=== PATIENT | male | born 1950 | race Caucasian/White ===

== ENCOUNTER 2024-12-09 20:13 | Inpatient (IN) | payer MEDICARE, MEDICAID ==
[~2024-12-09] VITALS: Ht 182.9 cm; Wt 60.3 kg
[2024-12-09 23:15] VITALS: BP 154/67; TEMP 98.1; O2SAT 98
[2024-12-09] MEDS ORDERED: ONDANSETRON HCL/PF 4 MG/2 ML VIAL IVP PRN (23:30)
[2024-12-10 00:56] VITALS: BP 154/67; TEMP 98.1; O2SAT 98
[2024-12-10] MEDS ORDERED: SODIUM BICARBONATE SYR 50 MEQ/50 ML DISP.SYRIN ONE (00:58)
[2024-12-10 01:08] LABS: CALCIUM, SERUM 8.9 mg/dL (8.5-10.1); CHLORIDE 105 mmol/L (98-107); GLUCOSE 143 mg/dL (74-106); POTASSIUM 5.6 mmol/L (3.5-5.1); SODIUM SERUM 139 mmol/L (136-145)
[2024-12-10 01:12] LABS: CARBON DIOXIDE 10 mmol/L (21-32); LIPASE > 375 U/L (16-77)
[2024-12-10 01:16] LABS: CREATININE 11.8 mg/dL (0.6-1.3); UREA NITROGEN, BLOOD 143 mg/dL (7-18)
[2024-12-10] MEDS ORDERED: ASPI-1169 PO (01:22)
[2024-12-10] MEDS ORDERED: EZET10TA16 PO (01:22)
[2024-12-10] MEDS ORDERED: MONT10TA22 PO (01:22)
[2024-12-10] MEDS ORDERED: FLUT16SP NS (01:22)
[2024-12-10] MEDS ORDERED: ROSU40TA PO (01:22)
[2024-12-10] MEDS ORDERED: CLON0.1T PO (01:22)
[2024-12-10] MEDS ORDERED: METF-442 PO (01:22)
[2024-12-10] MEDS ORDERED: OLME5TAB3 PO (01:22)
[2024-12-10] MEDS: Sodium Bicarbonate 100 MEQ in IV NS 0.9% 1,000 ML IV SCH (01:33)
[2024-12-10 04:00] VITALS: BP 150/69; TEMP 97.5; O2SAT 98
[2024-12-10] MEDS: DEXTROSE 50%-WATER 50 ML DISP.SYRIN IVP ONE (05:40)
[2024-12-10] MEDS: INSULIN REGULAR, HUMAN 100 UNIT/ML 10 ML VIAL IV ONE (05:43)
[2024-12-10] MEDS ORDERED: Calcium Gluconate 0.465 MEQ/ML VIAL IV ONE (05:54)
[2024-12-10] MEDS: Calcium Gluconate 0.465 MEQ/ML VIAL IV ONE (06:02)
[2024-12-10] MEDS: PANTOPRAZOLE 40 MG TABLET.DR PO SCH (06:44)
[2024-12-10 07:30] VITALS: BP 126/75; TEMP 98.1; O2SAT 98
[2024-12-10 07:40] LABS: BASOPHILS % (AUTO) 0.1 % (0.0-2.0); EOSINOPHILS % (AUTO) 0.2 % (0.0-6.0); HEMATOCRIT 33 % (39-51); HEMOGLOBIN 10.8 g/dL (13.5-17.5); LYMPHOCYTES % (AUTO) 6.9 % (20.0-44.0); MEAN CORPUSCULAR HEMOGLOBIN 28 PG (26.0-33.0); MEAN CORPUSCULAR HGB CONC 33 g/dl (31.0-36.0); MEAN CORPUSCULAR VOLUME 87 fL (80-96); MONOCYTES % (AUTO) 7.1 % (2.0-12.0); NEUTROPHILS # (AUTO) 12.2 K/uL (1.8-8.9); NEUTROPHILS % (AUTO) 85.7 % (43.0-81.0); PLATELET COUNT (AUTO) 303 K/uL (150-450); RED BLOOD CELL COUNT(AUTO) 3.81 MIL/uL (4.5-6.0); RED CELL DISTRIBUTION WIDTH 15.4 % (11.5-15.0); WHITE BLOOD COUNT (AUTO) 14.2 K/uL (4.3-11.0)
[2024-12-10 07:51] LABS: CHOLESTEROL 84 mg/dL (<200); HDL CHOLESTEROL 26 mg/dL (40-60); LDL 26 mg/dL (0-99); TRIGLYCERIDES 297 mg/dL (30-150)
[2024-12-10 07:58] LABS: CALCIUM, SERUM 8.8 mg/dL (8.5-10.1); CHLORIDE 106 mmol/L (98-107); GLUCOSE 128 mg/dL (74-106); MAGNESIUM 2.3 mg/dL (1.8-2.4); POTASSIUM 5.6 mmol/L (3.5-5.1); SODIUM SERUM 139 mmol/L (136-145)
[2024-12-10 08:44] LABS: CARBON DIOXIDE 9 mmol/L (21-32); CREATININE 11.8 mg/dL (0.6-1.3); LIPASE > 375 U/L (16-77); PHOSPHORUS 9.1 mg/dL (2.5-4.9); UREA NITROGEN, BLOOD 144 mg/dL (7-18)
[2024-12-10 09:30] LABS: SITE, VBG RIGHT RADIAL; VBG COHb 0.3 % (0.5-1.5); VBG HCO3 11.6 mmol/L (22.0-29.0); VBG MetHb 0.2 % (0.5-1.5); VBG O2Hb 96.2 % (0-79); VBG OXYGEN SATURATION 96.7 % (60.0-85.0); VBG PCO2 26.5 mmHg (38.0-54.0); VBG PH 7.258 (7.320-7.430); VBG PO2 101.4 mmHg (23.0-48.0); VBG TOTAL HEMOGLOBIN 10.9 G/dL (13.5-17.5)
[2024-12-10] MEDS: SODIUM ZIRCONIUM CYCLOSILICATE 10 GM POWD.PACK PO ONE (10:41)
[2024-12-10] MEDS: Sodium Bicarbonate 100 MEQ in IV 1/2NS 1000 ML 1,000 ML IV SCH (11:39)
[2024-12-10 16:10] VITALS: BP 157/81; TEMP 98.1; O2SAT 97
[2024-12-10 16:33] LABS: CREATININE, URINE 89.5 MG/DL (30.0-125.0); URINE TOTAL PROTEIN 165.9 mg/dL (0-11.9)
[2024-12-10 17:11] LABS: APPEARANCE,URINE CLEAR (CLEAR); BILIRUBIN,URINE NEGATIVE (NEGATIVE); BLOOD, URINE 3+ Ery/uL (NEGATIVE); COLOR,URINE YELLOW (YELLOW); KETONES,URINE NEGATIVE (NEGATIVE); LEUKOCYTE ESTERASE ,URINE NEGATIVE (NEGATIVE); NITRITE, URINE NEGATIVE (NEGATIVE); PH,URINE 5.5 (5.0-8.0); PROTEIN,URINE 2+ mg/dl (NEGATIVE); UGLUCOSE NEGATIVE (NEGATIVE); UROBILINOGEN,URINE 0.2 EU/dL (0.2)
[2024-12-10 17:21] LABS: ADD URINE CULTURE NO; BACTERIA,URINE Rare /HPF (None Seen); RBC,URINE 21-50 /HPF (0-2)
[2024-12-10 17:22] LABS: MUCUS,URINE Rare /LPF (None Seen)
[2024-12-10 20:00] VITALS: BP 148/67; TEMP 97.8; O2SAT 98
[2024-12-10 21:02] VITALS: BP 148/67; TEMP 97.8; O2SAT 98
[2024-12-10] MEDS: ACETAMINOPHEN 325 MG TABLET PO PRN (23:12)
[2024-12-11] VITALS: BP 126/70; TEMP 97.9; O2SAT 99
[2024-12-11 04:00] VITALS: BP 155/76; TEMP 98.2; O2SAT 98
[2024-12-11 07:06] LABS: BASOPHILS % (AUTO) 0.2 % (0.0-2.0); EOSINOPHILS # (AUTO) 0.2 K/uL (0.0-0.7); EOSINOPHILS % (AUTO) 1.9 % (0.0-6.0); HEMATOCRIT 27 % (39-51); HEMOGLOBIN 9.6 g/dL (13.5-17.5); LYMPHOCYTES # (AUTO) 0.8 K/uL (0.8-4.8); LYMPHOCYTES % (AUTO) 8.4 % (20.0-44.0); MEAN CORPUSCULAR HEMOGLOBIN 29 PG (26.0-33.0); MEAN CORPUSCULAR HGB CONC 35 g/dl (31.0-36.0); MEAN CORPUSCULAR VOLUME 83 fL (80-96); MONOCYTES # (AUTO) 0.8 K/uL (0.1-1.30); NEUTROPHILS # (AUTO) 7.7 K/uL (1.8-8.9); NEUTROPHILS % (AUTO) 81.5 % (43.0-81.0); PLATELET COUNT (AUTO) 234 K/uL (150-450); RED CELL DISTRIBUTION WIDTH 14.8 % (11.5-15.0); WHITE BLOOD COUNT (AUTO) 9.4 K/uL (4.3-11.0)
[2024-12-11 08:00] VITALS: BP 156/79; TEMP 97.7; O2SAT 98
[2024-12-11 10:33] LABS: ALANINE AMINOTRANSFERASE 191 U/L (12-78); ALBUMIN 2.7 g/dL (3.4-5.0); ALKALINE PHOSPHATASE 95 U/L (46-116); ASPARTATE AMINOTRANSFERASE 157 U/L (15-37); BILIRUBIN,TOTAL 0.3 mg/dL (0.2-1.0); CALCIUM, SERUM 8.4 mg/dL (8.5-10.1); CARBON DIOXIDE 27 mmol/L (21-32); CHLORIDE 103 mmol/L (98-107); GLUCOSE 155 mg/dL (74-106); MAGNESIUM 1.9 mg/dL (1.8-2.4); PHOSPHORUS 5.5 mg/dL (2.5-4.9); POTASSIUM 3.6 mmol/L (3.5-5.1); SODIUM SERUM 139 mmol/L (136-145); TOTAL PROTEIN, SERUM 6.4 g/dL (6.4-8.2)
[2024-12-11 10:48] LABS: CREATININE 8.2 mg/dL (0.6-1.3); UREA NITROGEN, BLOOD 84 mg/dL (7-18)
[2024-12-11 11:54] LABS: CREATINE KINASE, TOTAL 2509 U/L (39-308)
[2024-12-11 12:00] VITALS: BP 157/72; TEMP 98.1; O2SAT 98
[2024-12-11] MEDS ORDERED: DEXTROSE 50%-WATER 50 ML DISP.SYRIN IV PRN (13:30)
[2024-12-11 16:00] VITALS: BP 155/79; TEMP 98.1; O2SAT 98
[2024-12-11] MEDS: BLOOD SUGAR DIAGNOSTIC 1 EACH STRIP IN SCH (16:46)
[2024-12-11] MEDS: INSULIN REGULAR, HUMAN 100 UNIT/ML 3 ML VIAL SQ PRN (16:48)
[2024-12-11 20:00] VITALS: BP 138/63; TEMP 97.3; O2SAT 98
[2024-12-11] MEDS: MONTELUKAST SODIUM (10MG) 10 MG TABLET PO SCH (22:26)
[2024-12-12 01:07] LABS: HEPATITIS B SURFACE AB (QUAL) Non Reactive (.)
[2024-12-12 06:11] LABS: PTH, INTACT 149 pg/mL (15-65)
[2024-12-12 06:11] LABS: COMPLEMENT C3, SERUM 126 mg/dL (82-167); COMPLEMENT C4, SERUM 31 mg/dL (12-38)
[2024-12-12 07:00] VITALS: BP 145/78; TEMP 97.3; O2SAT 96
[2024-12-12 07:07] LABS: *ANA ANTI-CENTROMERE B AB <0.2 AI (0.0-0.9); *ANA ANTI-DNA(DS) AB, QN <1 IU/mL (0-9); *ANA ANTI-JO-1 <0.2 AI (0.0-0.9); *ANA ANTICHROMATIN ANTIBODY <0.2 AI (0.0-0.9); *ANA RNP ANTIBODIES <0.2 AI (0.0-0.9); *ANA SJOGREN'S ANTI-SS-A <0.2 AI (0.0-0.9); *ANA SJOGREN'S ANTI-SS-B <0.2 AI (0.0-0.9); *ANAANTI-SCLERODERMA-70 AB <0.2 AI (0.0-0.9); *ANASMITH AB <0.2 AI (0.0-0.9)
[2024-12-12] MEDS: ASPIRIN 81 MG TAB.CHEW PO SCH (08:24)
[2024-12-12] MEDS: ATORVASTATIN 40 MG TABLET PO SCH (08:24)
[2024-12-12] MEDS: EZETIMIBE 10 MG TABLET PO SCH (08:24)
[2024-12-12] MEDS: LOSARTAN POTASSIUM 25 MG TABLET PO SCH (08:24)
[2024-12-12] MEDS: FLUTICASONE PROPIONATE 16 GM BOTTLE NS SCH (09:18)
[2024-12-12 09:59] LABS: BASOPHILS % (AUTO) 0.2 % (0.0-2.0); EOSINOPHILS # (AUTO) 0.2 K/uL (0.0-0.7); EOSINOPHILS % (AUTO) 2.1 % (0.0-6.0); HEMATOCRIT 29 % (39-51); HEMOGLOBIN 9.9 g/dL (13.5-17.5); LYMPHOCYTES # (AUTO) 0.8 K/uL (0.8-4.8); LYMPHOCYTES % (AUTO) 8.7 % (20.0-44.0); MEAN CORPUSCULAR HEMOGLOBIN 29 PG (26.0-33.0); MEAN CORPUSCULAR HGB CONC 35 g/dl (31.0-36.0); MEAN CORPUSCULAR VOLUME 84 fL (80-96); MONOCYTES # (AUTO) 0.7 K/uL (0.1-1.30); MONOCYTES % (AUTO) 7.1 % (2.0-12.0); NEUTROPHILS # (AUTO) 7.8 K/uL (1.8-8.9); NEUTROPHILS % (AUTO) 81.9 % (43.0-81.0); PLATELET COUNT (AUTO) 187 K/uL (150-450); RED BLOOD CELL COUNT(AUTO) 3.39 MIL/uL (4.5-6.0); RED CELL DISTRIBUTION WIDTH 14.9 % (11.5-15.0); WHITE BLOOD COUNT (AUTO) 9.6 K/uL (4.3-11.0)
[2024-12-12 10:11] LABS: CALCIUM, SERUM 7.9 mg/dL (8.5-10.1); CARBON DIOXIDE 26 mmol/L (21-32); CHLORIDE 103 mmol/L (98-107); GLUCOSE 168 mg/dL (74-106); MAGNESIUM 1.6 mg/dL (1.8-2.4); PHOSPHORUS 5.1 mg/dL (2.5-4.9); POTASSIUM 3.6 mmol/L (3.5-5.1); SODIUM SERUM 144 mmol/L (136-145)
[2024-12-12 10:12] LABS: UREA NITROGEN, BLOOD 89 mg/dL (7-18)
[2024-12-12 10:13] LABS: CREATININE 7.8 mg/dL (0.6-1.3)
[2024-12-12] MEDS: MAGNESIUM OXIDE 400 MG TABLET PO ONE (12:35)
[2024-12-12 16:00] VITALS: BP 133/87; TEMP 97.7; O2SAT 97
[2024-12-12 20:00] VITALS: BP 139/63; TEMP 98.1; O2SAT 98
[2024-12-13] MEDS: MORPHINE SULFATE INJ 2 MG/ML DISP.SYRIN IV PRN (02:08)
[2024-12-13 07:00] VITALS: BP 167/81; TEMP 97.5; O2SAT 100
[2024-12-13 07:22] LABS: BASOPHILS # (AUTO) 0.1 K/uL (0.0-0.2); BASOPHILS % (AUTO) 0.5 % (0.0-2.0); EOSINOPHILS # (AUTO) 0.2 K/uL (0.0-0.7); HEMATOCRIT 30 % (39-51); HEMOGLOBIN 9.9 g/dL (13.5-17.5); LYMPHOCYTES # (AUTO) 1.1 K/uL (0.8-4.8); LYMPHOCYTES % (AUTO) 10.6 % (20.0-44.0); MEAN CORPUSCULAR HEMOGLOBIN 29 PG (26.0-33.0); MEAN CORPUSCULAR HGB CONC 34 g/dl (31.0-36.0); MEAN CORPUSCULAR VOLUME 86 fL (80-96); MONOCYTES # (AUTO) 0.8 K/uL (0.1-1.30); MONOCYTES % (AUTO) 7.4 % (2.0-12.0); NEUTROPHILS # (AUTO) 8.3 K/uL (1.8-8.9); NEUTROPHILS % (AUTO) 79.5 % (43.0-81.0); PLATELET COUNT (AUTO) 186 K/uL (150-450); RED BLOOD CELL COUNT(AUTO) 3.45 MIL/uL (4.5-6.0); RED CELL DISTRIBUTION WIDTH 14.7 % (11.5-15.0); WHITE BLOOD COUNT (AUTO) 10.4 K/uL (4.3-11.0)
[2024-12-13 08:17] LABS: ALBUMIN 2.7 g/dL (3.4-5.0); BILIRUBIN,TOTAL 0.5 mg/dL (0.2-1.0); CALCIUM, SERUM 8.2 mg/dL (8.5-10.1); CREATININE 4.7 mg/dL (0.6-1.3); PHOSPHORUS 3.4 mg/dL (2.5-4.9); POTASSIUM 3.7 mmol/L (3.5-5.1); TOTAL PROTEIN, SERUM 6.5 g/dL (6.4-8.2)
[2024-12-13 11:09] LABS: ANTI-MPO ANTIBODIES <0.2 units (0.0-0.9); ANTI-PR3 ANTIBODIES <0.2 units (0.0-0.9)
[2024-12-13 12:07] LABS: *SPE A/G RATIO 1.1 (0.7-1.7); *SPE ALBUMIN 2.9 g/dL (2.9-4.4); *SPE ALPHA-1-GLOBULIN 0.2 g/dL (0.0-0.4); *SPE ALPHA-2-GLOBULIN 1.1 g/dL (0.4-1.0); *SPE BETA GLOBULIN 0.8 g/dL (0.7-1.3); *SPE GLOBULIN, TOTAL 2.7 g/dL (2.2-3.9); *SPE M-SPIKE Not Observed g/dL (Not Observed); *SPE PROTEIN TOTAL 5.6 g/dL (6.0-8.5); *SPEGAMMA GLOBULIN 0.7 g/dL (0.4-1.8)
[2024-12-13 14:12] LABS: *ANCA ATYPICAL p-ANCA <1:20 titer (Neg:<1:20); *ANCA CYTOPLASMIC (C-ANCA) <1:20 titer (Neg:<1:20); *ANCA PERINUCLEAR (P-ANCA) <1:20 titer (Neg:<1:20)
[2024-12-13 16:00] VITALS: BP 158/79; TEMP 98.1; O2SAT 97
[2024-12-13 20:00] VITALS: BP 155/76; TEMP 98.2; O2SAT 97
[2024-12-14 07:00] VITALS: BP 179/85; TEMP 98.8; O2SAT 94
[2024-12-14 07:57] LABS: BASOPHILS % (AUTO) 0.2 % (0.0-2.0); EOSINOPHILS # (AUTO) 0.2 K/uL (0.0-0.7); EOSINOPHILS % (AUTO) 1.8 % (0.0-6.0); HEMATOCRIT 25 % (39-51); HEMOGLOBIN 8.6 g/dL (13.5-17.5); LYMPHOCYTES # (AUTO) 0.6 K/uL (0.8-4.8); LYMPHOCYTES % (AUTO) 6.1 % (20.0-44.0); MEAN CORPUSCULAR HEMOGLOBIN 29 PG (26.0-33.0); MEAN CORPUSCULAR HGB CONC 34 g/dl (31.0-36.0); MEAN CORPUSCULAR VOLUME 85 fL (80-96); MONOCYTES # (AUTO) 0.7 K/uL (0.1-1.30); MONOCYTES % (AUTO) 6.8 % (2.0-12.0); NEUTROPHILS # (AUTO) 8.7 K/uL (1.8-8.9); NEUTROPHILS % (AUTO) 85.1 % (43.0-81.0); PLATELET COUNT (AUTO) 158 K/uL (150-450); RED BLOOD CELL COUNT(AUTO) 2.94 MIL/uL (4.5-6.0); RED CELL DISTRIBUTION WIDTH 14.2 % (11.5-15.0); WHITE BLOOD COUNT (AUTO) 10.2 K/uL (4.3-11.0)
[2024-12-14 08:14] LABS: ALBUMIN 2.4 g/dL (3.4-5.0); BILIRUBIN,TOTAL 0.4 mg/dL (0.2-1.0); CREATININE 3.2 mg/dL (0.6-1.3); MAGNESIUM 1.7 mg/dL (1.8-2.4); PHOSPHORUS 2.6 mg/dL (2.5-4.9); POTASSIUM 3.5 mmol/L (3.5-5.1); TOTAL PROTEIN, SERUM 5.7 g/dL (6.4-8.2)
[2024-12-14] MEDS: NIFEdipine XL (30MG) 30 MG TAB PO SCH (09:07)
[2024-12-14 16:00] VITALS: BP 143/66; TEMP 98.6; O2SAT 95
[2024-12-14 20:00] VITALS: BP 149/72; TEMP 100; O2SAT 93
[2024-12-15 06:53] LABS: BASOPHILS % (AUTO) 0.2 % (0.0-2.0); EOSINOPHILS # (AUTO) 0.1 K/uL (0.0-0.7); EOSINOPHILS % (AUTO) 0.8 % (0.0-6.0); HEMATOCRIT 26 % (39-51); HEMOGLOBIN 8.6 g/dL (13.5-17.5); LYMPHOCYTES # (AUTO) 0.6 K/uL (0.8-4.8); LYMPHOCYTES % (AUTO) 5.4 % (20.0-44.0); MEAN CORPUSCULAR HEMOGLOBIN 29 PG (26.0-33.0); MEAN CORPUSCULAR HGB CONC 34 g/dl (31.0-36.0); MEAN CORPUSCULAR VOLUME 85 fL (80-96); MONOCYTES % (AUTO) 8.3 % (2.0-12.0); NEUTROPHILS % (AUTO) 85.3 % (43.0-81.0); PLATELET COUNT (AUTO) 165 K/uL (150-450); RED BLOOD CELL COUNT(AUTO) 2.99 MIL/uL (4.5-6.0); RED CELL DISTRIBUTION WIDTH 14.2 % (11.5-15.0); WHITE BLOOD COUNT (AUTO) 11.7 K/uL (4.3-11.0)
[2024-12-15 07:27] LABS: ALBUMIN 2.5 g/dL (3.4-5.0); BILIRUBIN,TOTAL 0.5 mg/dL (0.2-1.0); CREATININE 3.8 mg/dL (0.6-1.3); MAGNESIUM 1.5 mg/dL (1.8-2.4); PHOSPHORUS 2.8 mg/dL (2.5-4.9); POTASSIUM 3.5 mmol/L (3.5-5.1); TOTAL PROTEIN, SERUM 5.9 g/dL (6.4-8.2)
[2024-12-15 07:30] VITALS: BP 157/73; TEMP 98.6; O2SAT 96
[2024-12-15 16:00] VITALS: BP 140/61; TEMP 98.4; O2SAT 96
[2024-12-15 20:00] VITALS: BP 126/65; TEMP 98.2; O2SAT 97
[2024-12-16 07:18] LABS: BASOPHILS % (AUTO) 0.2 % (0.0-2.0); EOSINOPHILS # (AUTO) 0.1 K/uL (0.0-0.7); HEMATOCRIT 25 % (39-51); HEMOGLOBIN 8.2 g/dL (13.5-17.5); LYMPHOCYTES # (AUTO) 0.5 K/uL (0.8-4.8); LYMPHOCYTES % (AUTO) 6.3 % (20.0-44.0); MEAN CORPUSCULAR HEMOGLOBIN 29 PG (26.0-33.0); MEAN CORPUSCULAR HGB CONC 34 g/dl (31.0-36.0); MEAN CORPUSCULAR VOLUME 86 fL (80-96); MONOCYTES # (AUTO) 0.9 K/uL (0.1-1.30); MONOCYTES % (AUTO) 11.2 % (2.0-12.0); NEUTROPHILS # (AUTO) 6.2 K/uL (1.8-8.9); NEUTROPHILS % (AUTO) 81.3 % (43.0-81.0); PLATELET COUNT (AUTO) 157 K/uL (150-450); RED BLOOD CELL COUNT(AUTO) 2.86 MIL/uL (4.5-6.0); RED CELL DISTRIBUTION WIDTH 14.2 % (11.5-15.0); WHITE BLOOD COUNT (AUTO) 7.6 K/uL (4.3-11.0)
[2024-12-16 07:59] LABS: ALBUMIN 2.5 g/dL (3.4-5.0); BILIRUBIN,TOTAL 0.5 mg/dL (0.2-1.0); CALCIUM, SERUM 8.1 mg/dL (8.5-10.1); CREATININE 2.9 mg/dL (0.6-1.3); MAGNESIUM 1.5 mg/dL (1.8-2.4); PHOSPHORUS 2.5 mg/dL (2.5-4.9); POTASSIUM 3.4 mmol/L (3.5-5.1); TOTAL PROTEIN, SERUM 6.1 g/dL (6.4-8.2)
[2024-12-16 08:00] VITALS: BP 110/53; TEMP 97.7; O2SAT 96
[2024-12-16 16:00] VITALS: BP 149/77; TEMP 98.4; O2SAT 95
[2024-12-16 20:00] VITALS: BP_SYST 152; BP_SYST 163; BP_DIAS 70; BP_DIAS 75; TEMP 100.9; TEMP 99; O2SAT 96
[2024-12-17 06:34] LABS: BASOPHILS % (AUTO) 0.3 % (0.0-2.0); EOSINOPHILS % (AUTO) 0.6 % (0.0-6.0); HEMATOCRIT 27 % (39-51); LYMPHOCYTES # (AUTO) 0.5 K/uL (0.8-4.8); LYMPHOCYTES % (AUTO) 8.4 % (20.0-44.0); MEAN CORPUSCULAR HEMOGLOBIN 29 PG (26.0-33.0); MEAN CORPUSCULAR HGB CONC 33 g/dl (31.0-36.0); MEAN CORPUSCULAR VOLUME 88 fL (80-96); MONOCYTES % (AUTO) 16.2 % (2.0-12.0); NEUTROPHILS # (AUTO) 4.6 K/uL (1.8-8.9); NEUTROPHILS % (AUTO) 74.5 % (43.0-81.0); PLATELET COUNT (AUTO) 186 K/uL (150-450); RED BLOOD CELL COUNT(AUTO) 3.09 MIL/uL (4.5-6.0); RED CELL DISTRIBUTION WIDTH 14.5 % (11.5-15.0); WHITE BLOOD COUNT (AUTO) 6.1 K/uL (4.3-11.0)
[2024-12-17 07:24] LABS: CALCIUM, SERUM 8.5 mg/dL (8.5-10.1); CREATININE 3.5 mg/dL (0.6-1.3); POTASSIUM 3.5 mmol/L (3.5-5.1)
[2024-12-17 08:00] VITALS: BP 171/89; TEMP 98.4; O2SAT 98
[2024-12-17 10:00] VITALS: BP 145/74
[2024-12-17 12:38] LABS: BAND % (MANUAL) 10 % (0.0-5.0); LYMPHOCYTES % (MANUAL) 14 % (16-48); NEUTROPHILS % (MANUAL) 76 (42-76); PLATELET ESTIMATE ADEQUATE
[2024-12-17 20:00] VITALS: BP 120/56; TEMP 98.4; O2SAT 96
[2024-12-18 07:17] LABS: BASOPHILS % (AUTO) 0.4 % (0.0-2.0); EOSINOPHILS % (AUTO) 0.3 % (0.0-6.0); HEMATOCRIT 24 % (39-51); LYMPHOCYTES # (AUTO) 0.5 K/uL (0.8-4.8); LYMPHOCYTES % (AUTO) 11.4 % (20.0-44.0); MEAN CORPUSCULAR HEMOGLOBIN 28 PG (26.0-33.0); MEAN CORPUSCULAR HGB CONC 33 g/dl (31.0-36.0); MEAN CORPUSCULAR VOLUME 86 fL (80-96); MONOCYTES # (AUTO) 0.8 K/uL (0.1-1.30); MONOCYTES % (AUTO) 17.9 % (2.0-12.0); NEUTROPHILS # (AUTO) 2.9 K/uL (1.8-8.9); PLATELET COUNT (AUTO) 170 K/uL (150-450); RED BLOOD CELL COUNT(AUTO) 2.82 MIL/uL (4.5-6.0); RED CELL DISTRIBUTION WIDTH 14.3 % (11.5-15.0); WHITE BLOOD COUNT (AUTO) 4.2 K/uL (4.3-11.0)
[2024-12-18 07:27] LABS: CREATININE 2.4 mg/dL (0.6-1.3)
[2024-12-18 07:50] LABS: POTASSIUM 2.9 mmol/L (3.5-5.1)
[2024-12-18 08:00] VITALS: BP 137/66; TEMP 99; O2SAT 96
[2024-12-18] MEDS ORDERED: LIDOCAINE HCL/MPF 1% 30 ML VIAL IJ ONE (10:06)
[2024-12-18] MEDS ORDERED: HEPARIN SODIUM, PORCINE 1,000 UNIT/ML VIAL ONE (10:06)
[2024-12-18] MEDS ORDERED: ANESTHESIA TRAY IN PYXIS 1 EA TRAY MC ONE (10:06)
[2024-12-18] MEDS: POTASSIUM CL. PREMIX PERIPHER. 50 ML IV SCH (10:51)
[2024-12-18 11:15] VITALS: BP 152/61; TEMP 100.6; O2SAT 96
[2024-12-18 11:16] VITALS: TEMP 99.5
[2024-12-18] MEDS ORDERED: ACETAMINOPHEN 650 MG/SUPP.RECT RC PRN (11:30)
[2024-12-18] MEDS ORDERED: MIDAZOLAM HCL 2 MG/2ML VIAL ONE (12:08)
[2024-12-18 15:19] LABS: LYMPHOCYTES % (MANUAL) 15 % (16-48); MONOCYTES % (MANUAL) 10 % (0-11.0); NEUTROPHILS % (MANUAL) 75 (42-76)
[2024-12-18 15:20] LABS: ANISOCYTOSIS 1+; PLATELET ESTIMATE ADEQUATE
[2024-12-18 16:00] VITALS: BP 159/74; TEMP 99.5; O2SAT 97
[2024-12-18] MEDS: ANCEF 1 GM/50 ML D5W IV SCH (19:35)
[2024-12-18 20:00] VITALS: BP 124/63; TEMP 97.5; O2SAT 98
[2024-12-18] MEDS: BISACODYL SUPP (10 MG) 10 MG/SUPP.RECT SUPP.RECT RC PRN (23:47)
[2024-12-18] MEDS: DOCUSATE SODIUM 100 MG CAPSULE PO SCH (23:47)
[2024-12-19 07:53] LABS: BASOPHILS % (AUTO) 0.5 % (0.0-2.0); EOSINOPHILS # (AUTO) 0.1 K/uL (0.0-0.7); EOSINOPHILS % (AUTO) 1.9 % (0.0-6.0); HEMATOCRIT 25 % (39-51); HEMOGLOBIN 8.4 g/dL (13.5-17.5); LYMPHOCYTES # (AUTO) 0.4 K/uL (0.8-4.8); LYMPHOCYTES % (AUTO) 10.8 % (20.0-44.0); MEAN CORPUSCULAR HEMOGLOBIN 28 PG (26.0-33.0); MEAN CORPUSCULAR HGB CONC 33 g/dl (31.0-36.0); MEAN CORPUSCULAR VOLUME 86 fL (80-96); MONOCYTES # (AUTO) 0.7 K/uL (0.1-1.30); MONOCYTES % (AUTO) 16.6 % (2.0-12.0); NEUTROPHILS # (AUTO) 2.9 K/uL (1.8-8.9); NEUTROPHILS % (AUTO) 70.2 % (43.0-81.0); PLATELET COUNT (AUTO) 205 K/uL (150-450); RED BLOOD CELL COUNT(AUTO) 2.96 MIL/uL (4.5-6.0); RED CELL DISTRIBUTION WIDTH 14.5 % (11.5-15.0); WHITE BLOOD COUNT (AUTO) 4.1 K/uL (4.3-11.0)
[2024-12-19 08:00] VITALS: BP 164/75; TEMP 98.2; O2SAT 99
[2024-12-19 09:09] LABS: CALCIUM, SERUM 8.6 mg/dL (8.5-10.1); POTASSIUM 3.2 mmol/L (3.5-5.1)
[2024-12-19 10:02] LABS: BASOPHILS % (MANUAL) 0 % (0.0-2.0); EOSINOPHILS % (MANUAL) 2 % (0-4); LYMPHOCYTES % (MANUAL) 9 % (16-48); MONOCYTES % (MANUAL) 13 % (0-11.0); NEUTROPHILS % (MANUAL) 76 (42-76); PLATELET ESTIMATE ADEQUATE
[2024-12-19 12:00] VITALS: BP 140/71; TEMP 98.8; O2SAT 98
[2024-12-19] MEDS: POTASSIUM CHLORIDE 20 MEQ TAB.PRT.SR PO ONE (12:00)
[2024-12-19 12:11] LABS: INR 1.17 (0.91-1.10); PARTIAL THROMBOPLASTIN TIME 30.6 SEC (24.3-34.3); PROTHROMBIN TIME 12.3 SECS (9.2-11.1)
[2024-12-19] MEDS ORDERED: MIDAZOLAM HCL 2 MG/2ML VIAL IV PRN (13:00)
[2024-12-19] MEDS ORDERED: FENTANYL PF 250MCG/5ML AMPUL IV PRN (13:00)
[2024-12-19] MEDS ORDERED: FLUMAZENIL 0.5 MG VIAL IV PRN (13:00)
[2024-12-19] MEDS ORDERED: NALOXONE PREFILLED SYRINGE 2 MG/2 ML SYRINGE IV PRN (13:00)
[2024-12-19 14:30] VITALS: BP 149/67; TEMP 98.4; O2SAT 98
[2024-12-19] MEDS: POTASSIUM CHLORIDE 20 MEQ POWDER PACKET PO SCH (14:53)
[2024-12-19 16:00] VITALS: BP 165/74
[2024-12-19 20:00] VITALS: BP 122/69; TEMP 97.5; O2SAT 99
[2024-12-20 08:00] VITALS: BP 144/72; TEMP 98.2; O2SAT 98
[2024-12-20 08:27] VITALS: BP 144/72
== END 2024-12-20 15:00 | DRG 673 ==
LOC: TELE 23:07 → MED 12-11 15:20
PROVIDERS: ADMIT Nurse Practitioner Family; ATTEND Nurse Practitioner Family
PROC: 02HV33Z Insertion of Infusion Device into Superior Vena Cava, Percutaneous Approach (ICD-10-PCS; 2024-12-10)
PROC: 5A1D70Z Performance of Urinary Filtration, Intermittent, Less than 6 Hours Per Day (ICD-10-PCS; 2024-12-10)
PROC: 0HDRXZZ Extraction of Toe Nail, External Approach (ICD-10-PCS; principal; 2024-12-11)
PROC: 0JH63XZ Insertion of Tunneled Vascular Access Device into Chest Subcutaneous Tissue and Fascia, Percutaneous Approach (ICD-10-PCS; 2024-12-18)
PROC: 05HM33Z Insertion of Infusion Device into Right Internal Jugular Vein, Percutaneous Approach (ICD-10-PCS; 2024-12-18)
PROC: B513ZZA Fluoroscopy of Right Jugular Veins, Guidance (ICD-10-PCS; 2024-12-18)
PROC: 0TB13ZX Excision of Left Kidney, Percutaneous Approach, Diagnostic (ICD-10-PCS; 2024-12-19)
DX: N17.0 Acute kidney failure with tubular necrosis (principal); G92.8 Other toxic encephalopathy; K85.90 Acute pancreatitis without necrosis or infection, unspecified; E44.0 Moderate protein-calorie malnutrition; L97.412 Non-pressure chronic ulcer of right heel and midfoot with fat layer exposed; E87.20 Acidosis, unspecified; I5A Non-ischemic myocardial injury (non-traumatic); Z89.422 Acquired absence of other left toe(s); S91.205A Unspecified open wound of left lesser toe(s) with damage to nail, initial encounter; X58.XXXA Exposure to other specified factors, initial encounter; Y92.89 Other specified places as the place of occurrence of the external cause; E11.621 Type 2 diabetes mellitus with foot ulcer; E11.40 Type 2 diabetes mellitus with diabetic neuropathy, unspecified; E86.0 Dehydration; E86.1 Hypovolemia; E87.5 Hyperkalemia; R05.3 Chronic cough; Z79.899 Other long term (current) drug therapy; E87.6 Hypokalemia; E83.42 Hypomagnesemia; E88.09 Other disorders of plasma-protein metabolism, not elsewhere classified; E11.22 Type 2 diabetes mellitus with diabetic chronic kidney disease; I12.9 Hypertensive chronic kidney disease with stage 1 through stage 4 chronic kidney disease, or unspecified chronic kidney disease; N18.9 Chronic kidney disease, unspecified; D64.9 Anemia, unspecified; E78.5 Hyperlipidemia, unspecified; N20.0 Calculus of kidney; F03.90 Unspecified dementia, unspecified severity, without behavioral disturbance, psychotic disturbance, mood disturbance, and anxiety; Z79.84 Long term (current) use of oral hypoglycemic drugs; Z79.82 Long term (current) use of aspirin; Z91.158 Patient's noncompliance with renal dialysis for other reason
CPT/HCPCS: 36415; 36600; 71045-TC; 76700-TC; 76770-TC; 80048-TC; 80053-TC; 80061-TC; 81001; 82010-TC; 82550-TC; 82553; 82570-TC; 82803-TC; 82962-TC; 83520; 83605-TC; 83690-TC; 83735-TC; 83970; 84100-TC; 84155; 84165; 84300-TC; 84484-TC; 85025-TC; 85652-TC; 85730-TC; 86225; 86235; 86256; 86706; 86803; 86850-TC; 87040-TC; 87081-TC; 87086-TC; 87340; 90935-TC; 97110-TC; 97116-TC; 97530-TC; A4223; A6253; C1750; C1752; G0378; J0612; J0690; J1644; J1815; J2250; J2270; J3010; J3480; J3490; J7030; J7050; J7060

== ENCOUNTER 2025-01-05 21:51 | Inpatient (IN) | payer MEDICARE, MEDICAID ==
[~2025-01-05] VITALS: Ht 182.9 cm; Wt 57.2 kg
[~2025-01-05 21:51] MED LIST: ASPI-1169 PO; CLON0.1T PO; EZET10TA16 PO; FLUT16SP NS; METF-442 PO; MONT10TA22 PO; OLME5TAB3 PO; ROSU40TA PO
[2025-01-05] MEDS ORDERED: ONDA4VIA52 IV (22:29)
[2025-01-05] MEDS ORDERED: LOSA25TA3 PO (22:29)
[2025-01-05] MEDS ORDERED: INSU100V30 IJ (22:29)
[2025-01-05] MEDS ORDERED: ATOR80TA PO (22:29)
[2025-01-05] MEDS ORDERED: PANT40TA49 PO (22:29)
[2025-01-05] MEDS ORDERED: FLUT16SP BNOSTRILS (22:29)
[2025-01-05] MEDS ORDERED: TYL2T PO (22:29)
[2025-01-05] MEDS ORDERED: MORP2VIA IJ (22:29)
[2025-01-05 22:34] LABS: PLATELET COUNT (AUTO) 208 K/uL (150-450); RED BLOOD CELL COUNT(AUTO) 2.58 MIL/uL (4.5-6.0); RED CELL DISTRIBUTION WIDTH 14.2 % (11.5-15.0); WHITE BLOOD COUNT (AUTO) 8.3 K/uL (4.3-11.0)
[2025-01-05 22:41] LABS: CALCIUM, SERUM 9.3 mg/dL (8.5-10.1); CREATININE 1.8 mg/dL (0.6-1.3); SODIUM SERUM 133.0 mmol/L (136-145); UREA NITROGEN, BLOOD 32.0 mg/dL (7-18)
[2025-01-05 22:47] LABS: INR 1.06 (0.91-1.10)
[2025-01-05 22:49] LABS: ASPARTATE AMINOTRANSFERASE 31.0 U/L (15-37); TOTAL PROTEIN, SERUM 7.4 g/dL (6.4-8.2)
[2025-01-05 23:26] LABS: APPEARANCE,URINE CLOUDY (CLEAR); BLOOD, URINE 2+ Ery/uL (NEGATIVE); LEUKOCYTE ESTERASE ,URINE 3+ (NEGATIVE); NITRITE, URINE NEGATIVE (NEGATIVE); UGLUCOSE NEGATIVE (NEGATIVE)
[2025-01-05 23:36] LABS: ADD URINE CULTURE YES; SQUAMOUS EPITHELIAL CELL,UR None Seen /HPF (None Seen)
[2025-01-05] MEDS ORDERED: CEFTRIAXONE 1GM BAG (ER ONLY) 50 ML IV ONE (23:42)
[2025-01-05] MEDS: CEFTRIAXONE 1GM BAG (ER ONLY) 1 GM/50 ML PIGGYBACK IV ONE (23:43)
[2025-01-06] MEDS ORDERED: MAGNESIUM HYDROXIDE 30 ML UDC PO PRN
[2025-01-06] MEDS ORDERED: DEXTROSE 50%-WATER 50 ML DISP.SYRIN IV PRN
[2025-01-06] MEDS ORDERED: Z GUARD REMEDY 4 OZ OINT TP PRN
[2025-01-06] MEDS ORDERED: MAG HYDROX/AL HYDROX/SIMETH 30 ML UDC PO PRN
[2025-01-06] MEDS ORDERED: ONDANSETRON HCL/PF 4 MG/2 ML VIAL IVP PRN
[2025-01-06 00:50] VITALS: BP 136/60; TEMP 99; O2SAT 98
[2025-01-06] MEDS: IV NS 0.9% 1,000 ML IV PRN (01:21)
[2025-01-06 02:01] VITALS: BP 136/60; TEMP 99; O2SAT 98
[2025-01-06] MEDS: BLOOD SUGAR DIAGNOSTIC 1 EACH STRIP IN SCH (06:42)
[2025-01-06] MEDS: INSULIN REGULAR, HUMAN 100 UNIT/ML 3 ML VIAL SQ PRN (06:44)
[2025-01-06 06:45] LABS: PLATELET COUNT (AUTO) 186 K/uL (150-450); RED BLOOD CELL COUNT(AUTO) 2.52 MIL/uL (4.5-6.0); RED CELL DISTRIBUTION WIDTH 14.1 % (11.5-15.0); WHITE BLOOD COUNT (AUTO) 9.5 K/uL (4.3-11.0)
[2025-01-06 07:09] LABS: CALCIUM, SERUM 9.1 mg/dL (8.5-10.1); CREATININE 1.7 mg/dL (0.6-1.3); PHOSPHORUS 2.8 mg/dL (2.5-4.9); SODIUM SERUM 136.0 mmol/L (136-145); UREA NITROGEN, BLOOD 33.0 mg/dL (7-18)
[2025-01-06 08:00] VITALS: BP 106/69; TEMP 98.3; O2SAT 98
[2025-01-06] MEDS: EZETIMIBE 10 MG TABLET PO SCH (08:10)
[2025-01-06] MEDS: PANTOPRAZOLE 40 MG VIAL IV SCH ×2 (08:10→10:00)
[2025-01-06] MEDS: ATORVASTATIN 40 MG TABLET PO SCH (08:10)
[2025-01-06] MEDS ORDERED: LOSARTAN POTASSIUM 25 MG TABLET PO SCH (09:00)
[2025-01-06] MEDS: MAGNESIUM OXIDE 400 MG TABLET PO SCH (11:00)
[2025-01-06] MEDS: POTASSIUM CHLORIDE 20 MEQ TAB.PRT.SR PO ONE (11:34)
[2025-01-06] MEDS: MAGNESIUM OXIDE 400 MG TABLET PO ONE (11:34)
[2025-01-06] MEDS: EPOETIN ALFA (10,000 UNIT) 10,000 UNIT/ML VIAL SQ SCH (15:35)
[2025-01-06] MEDS ORDERED: NIFE-35 PO (15:44)
[2025-01-06 20:00] VITALS: BP 123/71; TEMP 98.6; O2SAT 99
[2025-01-06] MEDS: MONTELUKAST SODIUM (10MG) 10 MG TABLET PO SCH (21:24)
[2025-01-06 22:13] LABS: CREATININE, URINE 109.4 MG/DL (30.0-125.0); URINE SODIUM, RANDOM 43.0 mmol/l (40-220); URINE TOTAL PROTEIN 151.1 mg/dL (0-11.9)
[2025-01-06] MEDS: CEFTRIAXONE 1 G in IV D5W 50 ML IV SCH (23:40)
[2025-01-07] VITALS (9 sets, daily range): BP systolic 107–159; BP diastolic 54–78; TEMP 97.5–98.8; O2SAT 94–98
[2025-01-07 08:07] LABS: CREATINE KINASE, TOTAL 39.0 U/L (39-308)
[2025-01-07 08:12] LABS: PLATELET COUNT (AUTO) 210 K/uL (150-450); RED BLOOD CELL COUNT(AUTO) 2.40 MIL/uL (4.5-6.0); RED CELL DISTRIBUTION WIDTH 13.8 % (11.5-15.0); WHITE BLOOD COUNT (AUTO) 7.6 K/uL (4.3-11.0)
[2025-01-07 08:18] LABS: ASPARTATE AMINOTRANSFERASE 24.0 U/L (15-37); CALCIUM, SERUM 9.2 mg/dL (8.5-10.1); CREATININE 1.5 mg/dL (0.6-1.3); PHOSPHORUS 3.1 mg/dL (2.5-4.9); SODIUM SERUM 139.0 mmol/L (136-145); TOTAL PROTEIN, SERUM 6.4 g/dL (6.4-8.2); UREA NITROGEN, BLOOD 28.0 mg/dL (7-18)
[2025-01-07 08:23] LABS: OCCULT BLOOD STOOL NEGATIVE (NEGATIVE)
[2025-01-07 09:12] LABS: EOSINOPHILS % (MANUAL) 2 % (0-4); LYMPHOCYTES % (MANUAL) 13 % (16-48); MONOCYTES % (MANUAL) 11 % (0-11.0); NEUTROPHILS % (MANUAL) 74 (42-76); PLATELET ESTIMATE ADEQUATE
[2025-01-07] MEDS: PANTOPRAZOLE 40 MG TABLET.DR PO SCH (09:47)
[2025-01-07] MEDS: MAGNESIUM OXIDE 400 MG TABLET PO ONE (09:47)
[2025-01-08] MEDS: ACETAMINOPHEN 325 MG TABLET PO PRN (06:56)
[2025-01-08 07:47] VITALS: BP_SYST 152; BP_SYST 167; BP_DIAS 63; BP_DIAS 84; TEMP 98.4; O2SAT 98
[2025-01-08 08:21] VITALS: BP 152/63; TEMP 98.4; O2SAT 98
[2025-01-08 09:59] LABS: PLATELET COUNT (AUTO) 226 K/uL (150-450); RED BLOOD CELL COUNT(AUTO) 2.88 MIL/uL (4.5-6.0); RED CELL DISTRIBUTION WIDTH 14.3 % (11.5-15.0); WHITE BLOOD COUNT (AUTO) 6.9 K/uL (4.3-11.0)
[2025-01-08 10:14] LABS: ASPARTATE AMINOTRANSFERASE 40.0 U/L (15-37); CALCIUM, SERUM 8.7 mg/dL (8.5-10.1); CREATININE 1.4 mg/dL (0.6-1.3); PHOSPHORUS 2.7 mg/dL (2.5-4.9); SODIUM SERUM 132.0 mmol/L (136-145); TOTAL PROTEIN, SERUM 6.4 g/dL (6.4-8.2); UREA NITROGEN, BLOOD 24.0 mg/dL (7-18)
[2025-01-08] MEDS ORDERED: CEFA1FRO IV (11:08)
[2025-01-08 15:14] VITALS: BP 167/84; TEMP 97.5; O2SAT 96
[2025-01-08 15:47] VITALS: BP 168/88
[2025-01-08] MEDS: CLONIDINE HCL 0.1 MG TABLET PO ONE (16:30)
[2025-01-08 18:00] VITALS: BP 136/73
== END 2025-01-08 19:31 | DRG 689 ==
LOC: ER 22:01 → TELE 01-06 00:08 → MED 01-06 01:05
PROVIDERS: ADMIT Nurse Practitioner Acute Care; ATTEND Nurse Practitioner Acute Care
PROC: 30233N1 Transfusion of Nonautologous Red Blood Cells into Peripheral Vein, Percutaneous Approach (ICD-10-PCS; principal; 2025-01-07)
DX: N39.0 Urinary tract infection, site not specified (principal); G92.8 Other toxic encephalopathy; R53.2 Functional quadriplegia; N17.0 Acute kidney failure with tubular necrosis; E44.0 Moderate protein-calorie malnutrition; D68.59 Other primary thrombophilia; I12.0 Hypertensive chronic kidney disease with stage 5 chronic kidney disease or end stage renal disease; L97.929 Non-pressure chronic ulcer of unspecified part of left lower leg with unspecified severity; L97.919 Non-pressure chronic ulcer of unspecified part of right lower leg with unspecified severity; D62 Acute posthemorrhagic anemia; E11.22 Type 2 diabetes mellitus with diabetic chronic kidney disease; E78.5 Hyperlipidemia, unspecified; E83.42 Hypomagnesemia; E87.6 Hypokalemia; D63.1 Anemia in chronic kidney disease; E11.40 Type 2 diabetes mellitus with diabetic neuropathy, unspecified; E11.622 Type 2 diabetes mellitus with other skin ulcer; Z87.19 Personal history of other diseases of the digestive system; Z89.412 Acquired absence of left great toe; Z79.4 Long term (current) use of insulin; Z79.51 Long term (current) use of inhaled steroids; Z79.82 Long term (current) use of aspirin; Z79.84 Long term (current) use of oral hypoglycemic drugs; Z79.899 Other long term (current) drug therapy; B96.89 Other specified bacterial agents as the cause of diseases classified elsewhere; Z74.09 Other reduced mobility; F03.90 Unspecified dementia, unspecified severity, without behavioral disturbance, psychotic disturbance, mood disturbance, and anxiety; E88.09 Other disorders of plasma-protein metabolism, not elsewhere classified; K21.9 Gastro-esophageal reflux disease without esophagitis; Z99.2 Dependence on renal dialysis; M89.8X9 Other specified disorders of bone, unspecified site
CPT/HCPCS: 36415; 71045-TC; 80048-TC; 80053-TC; 80076-TC; 81001; 82272-TC; 82550-TC; 82570-TC; 82962-TC; 83735-TC; 83970; 84100-TC; 84300-TC; 85025-TC; 85027-TC; 85045-TC; 85730-TC; 86850-TC; 87081-TC; 87086-TC; 87186-TC; A4223; A6213; G0378; J0696; J0885; J1815; J2470; J7030; J7050; J7060; P9016